=== PATIENT | female | born 1980 | race Hispanic/Latino ===

== ENCOUNTER 2017-12-29 20:14 | Emergency (ER) | payer OTHER ==
[2017-12-29] MEDS ORDERED: TYLENOL PO ONE (20:35)
[2017-12-29] MEDS ORDERED: TYLENOL ONE (20:38)
[2017-12-30] MEDS ORDERED: NORCO 5/325 ONE ×2 (03:15)
[2017-12-30] MEDS ORDERED: NORCO 5/325 PO ONE (03:16)
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
[2017-12-30] MEDS ORDERED: DILAUDID IM ONE (05:02)
[2017-12-30] MEDS ORDERED: BACTRIM DS PO ONE (05:02)
[2017-12-30] MEDS ORDERED: ZOFRAN ODT PO ONE (05:02)
[2017-12-30] MEDS ORDERED: BOOSTRIX IM ONE (05:06)
[2017-12-30 05:28] VITALS: BP 152/103
== END 2017-12-30 05:40 | disposition home or self-care (01) ==
LOC: ED 20:14
DX: T23.172A Burn of first degree of left wrist, initial encounter (principal); X19.XXXA Contact with other heat and hot substances, initial encounter; Y93.89 Activity, other specified; Y99.8 Other external cause status; Y92.89 Other specified places as the place of occurrence of the external cause
CPT/HCPCS: 90471; 90715; 96372; 99283; J1170; Q0162

== ENCOUNTER 2021-12-27 09:01 | Outpatient (CLI) | payer OTHER ==
--- NOTE | 2021-12-27 15:04 | XRay Report ---
Bilateral knees-3 total views INDICATION: M25.569. Chronic bilateral knee pain COMPARISON: None available. IMPRESSION: No acute osseous abnormality. Genu valgus deformities. 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 Soft tissues are unremarkable. 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 Signer Name: Petey Reddy MD Signed: 12/27/2021 2:59 PM Workstation Name: [id number]
== END 2021-12-27 09:02 | disposition home or self-care (01) ==
LOC: XRAY 09:01
PROVIDERS: ATTEND Orthopaedic Surgery
DX: M17.0 Bilateral primary osteoarthritis of knee (principal)